=== PATIENT | female | born 1965 | race Caucasian/White ===

== ENCOUNTER 2016-10-05 20:34 | Inpatient (IN) | payer OTHER ==
--- NOTE | ~2016-10-05 | DS ---
Discharge Summary [facility] [address] [place]. [address] NAME: SANDI SPARKS : 67 STATUS : DIS IN PAT#: [id number] AGE: 51 ADM/REG DATE : 10/05/16 MR#: [id number] REPORT SERV DATE: 10/24/16 DICTATED BY: LUBNA DOUGLAS DATE: 10/23/16 REPORT STATUS : Draft TRANSCRIBED BY: ZULEMA DATE: 10/23/16 Data Collection from hospitalization DISCHARGE DIAGNOSES: 1. Coronary artery disease. 2. Hypertension. 3. Tobacco abuse. 4. Ozl-UW-potqivnpl myocardial infarction. CONSULTATION: Jamarcus Altamirano NP PROCEDURES PERFORMED: 1. Cardiac catheterization, 10/06/2016. 2. Coronary artery bypass grafting x3 with JONES to the LAD, reverse saphenous vein graft placed to the first diagonal, right internal mammary artery placed to the distal right coronary artery. 3. Endoscopic vein harvest of the left lower leg saphenous vein transesophageal echocardiography, 10/09/2016. 4. Carotid blood flow study, 10/09/2016. MEDICATIONS: Aspirin 162 mg daily, Lipitor 40 mg at bedtime, Plavix 75 mg daily, Toprol-XL 25 mg at bedtime, Centrum tablets one tablet daily, Percocet 5/325 one to two tablets every four hours as needed, Klor-Con 10 mEq daily. She was instructed not to continue labetalol and Benicar. CONDITION AT DISCHARGE: Stable. DISPOSITION: The patient was discharged home on a regular diet with activities as instructed. She would follow up with , 11/10/2016. She would follow up with Jez Smith, 11/30/2016. HOSPITAL COURSE: This is a 51-year-old female, who about a week prior to this admission, complained of abdominal discomfort, nausea, and vomiting. She thought that she has a flu or some type of viral illness because it resolved after she vomited and ambulance was activated, and she was basically in it within a couple of minutes. Her EKG showed worrisome P wave abnormalities in the anteroseptal region with possible anteroseptal infarct of undetermined age and anteroseptal ST-T changes, likely due to ischemia. Several EKGs were performed and they remained unchanged on arrival to the emergency department and was recognized as having a rok-RX-jyxchncqq myocardial infarction and was started on appropriate adjuvant therapy. Several EKGs were performed and were unchanged. When I was called by the emergency room, I was assured that she was completely asymptomatic and her troponin measurement was elevated at just over 5. She was started on IV heparin, topical nitrates, and loaded with beta blockers and started on statin and aspirin. She was admitted to the hospital at this time for further evaluation and treatment. Upon admission, it was felt that she would need to undergo a cardiac catheterization. She was taken to the cardiac cathode ray tube salvage processor, where she underwent the above-mentioned procedure. She tolerated this well and there were no complications. The following day, she was seen by [address] [place]. [address] NAME: SANDI SPARKS : 67 STATUS : DIS IN PAT#: [id number] AGE: 51 ADM/REG DATE : 10/05/16 MR#: [id number] REPORT SERV DATE: 10/24/16 DICTATED BY: LUBNA DOUGLAS DATE: 10/23/16 REPORT STATUS : Draft TRANSCRIBED BY: ZULEMA DATE: 10/23/16 Jamarcus Altamirano regarding multivessel coronary artery disease. The patient was found to have 90% ostial stenosis to the LAD and greater than 70% stenosis to the ostial RCA. Ejection fraction was calculated around 55% with a question of some mitral regurgitation, which was thought to likely be secondary to the catheter. An echocardiogram was pending. She was currently recovering after cardiac catheterization with no complaints of chest pain or shortness of breath. She was emotionally distraught due to the recent news regarding her medical health. It was felt that the patient would need to undergo coronary artery bypass grafting. Echocardiogram was performed. On 10/07/2016, she did have some palpitations. Metoprolol was increased. Echocardiogram had shown ejection fraction of 50%. On 10/09/2016, the patient was taken to the operating room by Dr. Conti, where she underwent the above-mentioned procedure. She tolerated this well and there were no complications. On postop day #1, she did have some nausea. She was in a normal sinus rhythm. She was up sitting in a chair. Chest tubes were going to be removed. Her incisions looked okay. She had no edema. She had done well overnight on the . She continued to do well postoperatively. She had trace pedal edema. O2 saturation was 97% on 2 L. she continued to do well. Discharge planning was performed. She was ambulatory. On 10/13/2016, discharge instructions were given. Due to her improved and stable condition, she was discharged home with the above-stated instructions. Information collected by: Brittany Jones I submit the above information as my discharge summary. PAT/ZULEMA Lubna Douglas D.O. / [id number] CC: Cindy Blanco NP
--- NOTE | ~2016-10-05 | ECH ---
Echocardiogram [facility] [address] [place]. [address] NAME: SANDI SPARKS : 67 STATUS : ADM IN PAT#: [id number] AGE: 51 ADM/REG DATE : 10/05/16 MR#: [id number] REPORT SERV DATE: 10/09/16 DICTATED BY: AZAR MENDOSA JR. DATE: 10/08/16 REPORT STATUS : Draft TRANSCRIBED BY: MODNeida DATE: 10/08/16 DATE OF ACQUISITION: 10/06/2016. Room #5109. INDICATIONS: Evaluation of mitral insufficiency post cardiac catheterization. Pre CAB. 2-D INTERPRETATION: M-mode and 2-dimensional echocardiography were performed. The left atrium was mildly dilated at 4.2 cm compared to an aortic root diameter of 3 cm. The left ventricle is normal in size measuring 5 cm in end-diastole and 3.7 cm in end-systole. Overall, there appeared to be borderline normal left ventricular systolic function with ejection fraction estimated at 50% with mild to moderate anterolateral and apical hypokinesis. The aortic valve was trileaflet, mildly sclerotic. The mitral valve appeared to be mildly sclerotic and thickened. The remaining cardiac valves appeared to be structurally normal. No obvious pericardial or pleural effusion could be seen. No intracardiac mass could be identified. The right ventricle did not appear to be dilated. DOPPLER/COLOR FLOW: Conventional and Doppler color flow imaging were performed. Mitral inflow patterns were suggestive of advanced diastolic dysfunction and pseudonormalization. There was mild mitral insufficiency. There was trace tricuspid insufficiency, however, a peak right ventricular systolic pressure did not suggest pulmonary hypertension. Peak gradient across the aortic valve measured 8 mmHg. CONCLUSION: BORDERLINE NORMAL LEFT VENTRICULAR SYSTOLIC FUNCTION WITH DIASTOLIC DYSFUNCTION. ANTERIOR LATERAL WALL MOTION ABNORMALITIES DESCRIBED ABOVE. MITRAL VALVE SCLEROSIS WITH MILD MITRAL INSUFFICIENCY. NO OBVIOUS EVIDENCE OF PULMONARY HYPERTENSION. /ZULEMA Azar Mendosa Jr., M.D. / [id number] CC: Lubna Douglas D.O.
--- NOTE | ~2016-10-05 | OP ---
Record Of Operation [facility] [address] [place]. [address] NAME: SANDI SPARKS : 67 STATUS : ADM IN PAT#: [id number] AGE: 51 ADM/REG DATE : 10/05/16 MR#: [id number] REPORT SERV DATE: 10/09/16 DICTATED BY: LUBNA DOUGLAS DATE: 10/06/16 REPORT STATUS : Draft TRANSCRIBED BY: ZULEMA DATE: 10/06/16 DATE OF PROCEDURE: 10/06/2016 CARDIAC CATHETERIZATION REPORT INDICATION: Non-STEMI. CONSENT: From the patient. LOCATION: Cardiac director labor standards 2. SPLUNK ARCHITECT: Lubna Douglas D.O. LABOR CONTRACT ANALYST: Lashon Whyte. MONITOR: Nannette Jin. SCRUB: Colby Rhodes. FLURO: Colby Lucas. INDICATION: Non-STEMI with angina class IV. ACCESS: Right femoral artery. EQUIPMENT USED: 6-Brazilian 3DRC, 6-Brazilian JL4, 6-Brazilian pigtail, and 6-Brazilian sheath. Micropuncture kit also utilized for arterial access. The patient's body surface area is 1.6 meter squared, hemoglobin 12.7. BRIEF SUMMARY: This 51-year-old lady, former smoker, history of hypertension, developed acute severe chest tightness at work. 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 Initial troponin level was 5, and she actually was very stable overnight without recurrent symptoms. She is brought into the cardiac catheterization lab after arterial access was obtained, we sent an additional troponin measurement, results are pending. She tolerated the procedure well and given the findings, Dr. Conti was consulted for CABG. 1. Hemodynamics: The patient had borderline hypotension at the start of the case with systolic blood pressure just below 100. The LVEDP was approximately 14. 2. Selective coronary arteriography:. a. The patient has a right dominant system. She has calcified plaque seen involving the left coronary artery system. The left main artery appeared fairly normal, however, the ostium of the LAD had a very tight eccentric lesion of approximately 90% severity. The remainder of the LAD appeared quite good. Calcific plaque was noted at the ostium creating the eccentric stenosis seen best in the Record Of Operation [facility] [address] [place]. [address] NAME: SANDI SPARKS : 67 STATUS : ADM IN PAT#: [id number] AGE: 51 ADM/REG DATE : 10/05/16 MR#: [id number] REPORT SERV DATE: 10/09/16 DICTATED BY: LUBNA DOUGLAS DATE: 10/06/16 REPORT STATUS : Draft TRANSCRIBED BY: ZULEMA DATE: 10/06/16 "spider views.". b. The circumflex artery was at minor irregularities. The right coronary artery was large dominant vessel with an ostial of at least 70% lesion. Engagement of the ostium with the 6-Brazilian catheter resulted in prompt systemic pressure dampening, which was resolved after the catheter was withdrawn. c. No collaterals were visualized to either the left coronary system or right coronary system. 3. Left ventriculography. Ventriculogram was obtained in the 30-degree, VYAS view. This demonstrates a dilated left ventricular cavity and an ejection fraction of approximately 50 to perhaps 55% with anterolateral hypokinesis and trivial to 1 plus MR. The MR did look worse following a PVC. Echocardiogram has been ordered and is pending. The aortic valve appeared trileaflet and there was no gradient observed on pigtail catheter pullback from this left ventricular cavity to the ascending aorta. CONCLUSION: 1. Severe two-vessel coronary artery disease involving the ostial LAD and ostial RCA. Left ventricular ejection fraction is mildly reduced/low normal. 2. Mild mitral regurgitation. MR appears worse, but after several beats likely due to catheter-induced MR. 3. Relative hypotension. 4. Mildly elevated LVEDP. PLAN: Check an echocardiogram. Continue aspirin, statin, beta chaz, nitrate as tolerated. Consult Dr. Conti for CABG. Troponin was sent at the beginning of the case and results are pending. SANJAY/ZULEMA Lubna Douglas D.O. / [id number] CC: Lubna Douglas D.O.
--- NOTE | ~2016-10-05 | HP ---
History And Physical [facility] [id number] [place]. [address] NAME: SANDI SPARKS : 67 STATUS : ADM IN [facility]#: [id number] AGE: 51 ADM/REG DATE : 10/05/16 MR#: [id number] REPORT SERV DATE: 10/06/16 DICTATED BY: LUBNA DOUGLAS DATE: 10/06/16 REPORT STATUS : Draft TRANSCRIBED BY: ZULEMA DATE: 10/06/16 DATE OF ADMISSION: 10/05/2016 REASON FOR ADMISSION: Non-STEMI. 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 She is new at [employer], previously working in [place]. 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 There EKG showed worrisome T-wave abnormalities in the anteroseptal region with possible anteroseptal infarct, age undetermined and anteroseptal ST-T changes likely due to ischemia. Several EKGs were preformed and they remained unchanged. On arrival to the emergency department, she was seen and evaluated, recognizes having a non-STEMI and started on appropriate adjuvant therapy. When I was called by the emergency room, I was assured that she was completely asymptomatic and her troponin measurement was elevated at just over 5. She was started on IV heparin, topical nitrates, loaded with beta-blockers started on statin, aspirin, and admitted. She is to have cardiac catheterization based on the above. She has not had any arrhythmias overnight or recurrent symptoms. She has deep and symmetric inverted T-waves anteroseptally extending anterolaterally and possibly had prior anteroseptal infarct. Home medicines include Benicar HCT 20/12.5 daily, labetalol 200 b.i.d., multivitamin. SOCIAL HISTORY: She is . She has a boyfriend. She has a 32-year-old son who works and lives in [place]. She denies illicit drug use or alcohol and is complain with medications. ALLERGIES: NONE KNOWN. RECENT SURGERIES: None. Specifically, denies illicit drug use. Labs on arrival noted with a hemoglobin of 13.1, normal white count, and platelet count 209,000. Coags were normal. She was treated by Dr. Jhonatan De La Torre in the ER. Potassium was 3.6, magnesium 1.8, troponin I 5.95. Chest x-ray unremarkable. Serial EKGs were performed. Additional troponin measurements were made, and the patient is in no distress. FAMILY HISTORY: Mother of CHF at 50, father had hypertension. Habit: She quit smoking four years ago, smoked about 25 pack years. PHYSICAL EXAMINATION: VITAL SIGNS: Stable. She is 5 feet, weight 137. GENERAL: Pleasant, no distress. HEENT: Unremarkable. NECK: Veins are flat. No carotid bruits. History And Physical [address] [address] NAME: SANDI SPARKS : 67 STATUS : ADM IN [facility]#: [id number] AGE: 51 ADM/REG DATE : 10/05/16 MR#: [id number] REPORT SERV DATE: 10/06/16 DICTATED BY: LUBNA DOUGLAS. DATE: 10/06/16 REPORT STATUS : Draft TRANSCRIBED BY: ZULEMA DATE: 10/06/16 LUNGS: Clear. HEART: Heart sounds are regular rate and rhythm. S1, S2. No murmur, rub, gallop, or click. ABDOMEN: Soft. EXTREMITIES: No edema. IMPRESSION: Gjj-ZP-qlkejuttz myocardial infarction with worrisome EKG abnormalities for anterior ischemia. She could have multivessel disease with an occluded LAD and collaterals. Other considerations would be takotsubo cardiomyopathy or coronary artery vasospasm. PLAN: Cardiac catheterization is recommended. The patient aggress to proceed. I discussed the risks, benefits, and alternatives and she seems to understand completely and agrees to proceed. SANJAY/ZULEMA Lubna Douglas D.O. / [id number] CC: Lubna Douglas D.O.
--- NOTE | ~2016-10-05 | OP ---
Record Of Operation [facility] [address] [place]. [address] NAME: SANDI SPARKS : 67 STATUS : ADM IN PAT#: [id number] AGE: 51 ADM/REG DATE : 10/05/16 MR#: [id number] REPORT SERV DATE: 10/09/16 DICTATED BY: LINDA CONTI DATE: 10/09/16 REPORT STATUS : Draft TRANSCRIBED BY: MODL DATE: 10/09/16 DATE OF PROCEDURE: 10/09/2016 PREOPERATIVE DIAGNOSES: 1. Coronary artery disease with non-ST elevation myocardial infarction. 2. Hypertension. 3. Previous tobacco abuse. 4. Obesity. POSTOPERATIVE DIAGNOSES: 1. Coronary artery disease with non-ST elevation myocardial infarction. 2. Hypertension. 3. Previous tobacco abuse. 4. Obesity. PROCEDURE PERFORMED: 1. Urgent coronary artery bypass grafting x3, left internal mammary artery placed to left anterior descending, reverse saphenous vein graft placed to the first diagonal, right internal mammary artery placed to the distal right coronary artery. 2. Endoscopic vein harvest of the left lower leg saphenous vein. 3. Transesophageal echocardiography. SURGEON: Linda Conti M.D. ASSISTANTS: Jayleen Motta, and Abdirahman Bah. ANESTHESIA: General with Dr. Mayen. TECHNICAL TRAINING INSTRUCTOR: Lubna Douglas D.O. INDICATIONS: This is a 51-year-old female, who has a remote history of smoking and quit about five years ago. She has a strong family history for coronary disease. She is hypertensive. She presented to the emergency room with unrelenting chest discomfort and in the emergency room, had nonspecific ST changes and a troponin that was elevated. She was admitted to the hospital and medically stabilized and underwent a cardiac catheterization, which demonstrated significant two-vessel coronary artery disease with ostial LAD and right coronary artery lesions. It was felt that the patient would not be a good candidate for angioplasty because of the proximal nature of the disease. Her ventricular function was good with an ejection fraction greater than 50%. We were asked to see the patient for possible revascularization. Echocardiography did not demonstrate any critical valvular dysfunction. We discussed possible coronary artery bypass grafting with the patient and her boyfriend and they wished to proceed. STS predicted mortality of less than 2% and morbidity and mortality less than 10% were shared with the family and the patient. FINDINGS AT OPERATION: 1. Cross-clamp 56 minutes, total pump time 71 minute. Record Of Operation [facility] [address] [place]. [address] NAME: SANDI SPARKS : 67 STATUS : ADM IN PAT#: [id number] AGE: 51 ADM/REG DATE : 10/05/16 MR#: [id number] REPORT SERV DATE: 10/09/16 DICTATED BY: LINDA CONTI DATE: 10/09/16 REPORT STATUS : Draft TRANSCRIBED BY: ZULEMA DATE: 10/09/16 2. The LAD was 1.75 mm mildly diseased vessel. A 2.5 mm JONES was anastomosed to it with good runoff. 3. The first diagonal was 1.5 mm mildly diseased. A 3 mm RSVG was anastomosed to it with good runoff. 4. The distal right coronary artery was 2 mm mildly diseased. A 2 mm right internal mammary artery was anastomosed to it with good runoff. This was an in situ graft. 5. The vein quality was good and all grafts had good Doppler signal at the end of the case. 6. CARISA at the end of the operation demonstrated good ventricular function. No surgically significant valvular pathology. PATHOLOGIC SPECIMENS: None. DESCRIPTION OF PROCEDURE: The patient was brought to the operating suite. General anesthesia was induced and the airway was secured with an endotracheal tube. Lines were secured by Anesthesia and Tanner catheter was placed. The patient's chest, abdomen, groin, and legs prepped with Hibiclens and ChloraPrep and draped with Ioban and sterile sheets. CARISA probe was placed by Dr. Mayen and examination was carried out in my attendance as discussed above. The saphenous vein was harvested from the left lower leg using endoscopic technique. Briefly, the vein was cut directly down upon through a medially based 2 cm incision near the right knee. Thus, the vessel was dissected from the surrounding subcutaneous tissue and fat using the endoscopic vein harvest system. And side branches were ligated and divided with cautery. Once adequate length of vein had been dissected, a counter incision was made in the lower leg just above the medial malleolus. The vein was ligated, divided, and brought through the knee incision. The vein quality was good. It was mildly small, but felt to be good match for the distal targets. The leg wounds were made hemostatic, and closed in layers with absorbable suture, and the skin was closed in subcuticular fashion. Then, a midline sternal incision was made and the sternum was opened with a saw. The left hemithorax was elevated and the endothoracic fascia was incised. The side branches of the KAYDEN were clipped and divided. Once the KAYDEN was completely dissected from the left side, the Jg retractor was reversed and right hemithorax was elevated. The right internal mammary artery was dissected from the chest wall in an identical fashion. There were moderate-sized bilateral pleural effusions that were evacuated and these were serous. Once the right internal mammary artery was completely dissected, each side branches were ligated, clipped, and divided with cautery. Once adequate length of the right mammary artery had been dissected completely, the patient was anticoagulated with heparin. The chest tubes were placed bilaterally in the pleural spaces. Both mammary vessels were then clipped distally and divided. There was good flow through both of the vessels and their pedicles were infiltrated with papaverine. Next, the Travis retractor was placed in the pericardium over from the innominate vein to the diaphragm where it was T'd and tacked to the side of the chest wall. Cannulation pursestring sutures were placed and cannulation was carried out in a routine manner. A retrograde cardioplegia cannula was placed in the coronary sinus. Record Of Operation [facility] [address] [place]. [address] NAME: SANDI SPARKS : 67 STATUS : ADM IN [facility]#: [id number] AGE: 51 ADM/REG DATE : 10/05/16 MR#: [id number] REPORT SERV DATE: 10/09/16 DICTATED BY: LINDA CONTI DATE: 10/09/16 REPORT STATUS : Draft TRANSCRIBED BY: MODL DATE: 10/09/16 When all was in readiness, the patient was placed on cardiopulmonary bypass. The distal targets were marked out on the heart as described in the findings. Then, a heart support was placed. The aorta was crossclamped and an initial dose cold blood cardioplegia solution was given in a combination of antegrade and retrograde fashion, then in a retrograde manner following proximal anastomoses. Following the first dose of cardioplegia, the heart was positioned for the first diagonal graft. Arteriotomy was made. The vein graft was then anastomosed to it with 7-0 Prolene. The vein graft was measured back to the left side of the ascending aorta where it was later anastomosed to a 4.5 mm punch aortotomy with 6-0 Prolene. We then positioned the heart for the distal RCA graft. Arteriotomy was made in the distal RCA just proximal to the bifurcation with the PDA. The right internal mammary artery was brought into the middle mediastinal space through a notch in the pericardium above the proximal SVC. Care was taken to avoid injury to the phrenic nerve. The right mammary artery was then brought down to the level of the distal RCA. Arteriotomy was made and the KAYDEN was opened and anastomosed to this vessel with a running suture of 8-0 Prolene. Following completion of anastomosis, Doppler signal demonstrated good flow and the pedicle was then tacked to the pericardium. Another dose of cardioplegia was given and we positioned the heart for the LAD graft. Warming was begun. Arteriotomy was made to mid LAD. The KAYDEN was brought out of the left chest through a notch in the pericardium over the pulmonary artery. The KAYDEN was opened and anastomosed to the LAD with running suture of 8-0 Prolene. The endothoracic fascia was tacked to epicardium. The patient was placed in Trendelenburg and a final dose of warm blood cardioplegia was given in a retrograde fashion. Ventricular and atrial pacing wires were placed. Following the last dose cardioplegia and deairing of the aorta, the aortic cross clamp was removed. The distal and proximal anastomoses were inspected and made hemostatic. Doppler demonstrated good flow through the grafts. The heart resumed a sinus rhythm that was slow and was paced atrially at a rate of 80. Ventilations were begun and when the heart demonstrated good contractility, it was allowed to fill and eject. When deairing was completed, the patient was taken out of Trendelenburg and the ascending aortic vent was removed and these pursestring sutures tied and reinforced with 4-0 Prolene pursestring. The patient was weaned from cardiopulmonary bypass with minimal inotropic support. The venous cannula was removed and these pursestring sutures were tied. CARISA examination demonstrated good ventricular function with no significant valvular pathology. Protamine was administered by Anesthesia. Following a period of hemodynamic stability, the aortic cannula was removed and these pursestring sutures were tied and reinforced. The patient continued to do well and chest was irrigated copiously with saline. Meticulous hemostasis was obtained. Hemasorb was placed along the cut edge of the sternum. Once hemostasis was assured, the pericardium was draped over the anterior surface of the heart and tacked into position. Doppler demonstrated good flow through the grafts following protamine administration. Then, chest tubes were placed and the sternum was reapproximated Record Of Operation [facility] [id number] [place]. [address] NAME: SANDI SPARKS : 67 STATUS : ADM IN [facility]#: [id number] AGE: 51 ADM/REG DATE : 10/05/16 MR#: [id number] REPORT SERV DATE: 10/09/16 DICTATED BY: LINDA CONTI DATE: 10/09/16 REPORT STATUS : Draft TRANSCRIBED BY: ZULEMA DATE: 10/09/16 with 8 sternal wires. The clavipectoral fascia and linea alba was closed with 0 PDS. Subcutaneous tissue was closed and the skin was closed in subcuticular fashion. The patient tolerated the procedure well. There were no complications. Sponge and needle counts were correct. DISPOSITION: The patient was left intubated, sedated, and transported to the Intensive Care in stable condition. AMELIA/ZULEMA Linda Conti M.D. / [id number] CC: Cindy Blanco Jr., M.D.
--- NOTE | ~2016-10-05 | CN ---
Consultation Report [facility] [address] [place]. [address] NAME: SANDI SPARKS : 67 STATUS : ADM IN PAT#: [id number] AGE: 51 ADM/REG DATE : 10/05/16 MR#: [id number] REPORT SERV DATE: 10/06/16 DICTATED BY: CAITLYN FRANKS DATE: 10/06/16 REPORT STATUS : Draft TRANSCRIBED BY: MODL DATE: 10/06/16 CONSULT REPORT DATE OF CONSULTATION: 10/06/2016 REASON FOR CONSULTATION: Multivessel coronary artery disease. HISTORY OF PRESENT ILLNESS: This is a pleasant 51-year-old female with no significant past medical history other than high blood pressure that presented to the emergency room on 10/05/2016 with complaints of severe substernal chest pain. In the emergency room yesterday evening, she had an elevated troponin consistent with a non-ST- elevation LA. She was taken for arteriogram this morning and found to have multivessel coronary artery disease including a 90% ostial stenosis to her LAD and greater than 70% stenosis to her ostial RCA. Ejection fraction was calculated around 55% with a question of some mitral regurgitation, which was thought to likely be secondary to the catheter. An echocardiogram is currently pending. Currently, the patient is recovering after cardiac catheterization with no complaints of chest pain or shortness of breath. She is emotionally distraught at this point in time due to the recent news regarding her medical health. CT surgery was consulted for evaluation of CAB. PAST MEDICAL HISTORY: Significant only for hypertension. PAST SURGICAL HISTORY: No major surgeries in the past. FAMILY HISTORY: Mother with a history of CHF and mother with a history of high blood pressure. SOCIAL HISTORY: She is employed at [employer]. She smoked for 25 years around a pack per day, but quit four years ago. She occasionally uses alcohol, but denies any history of illicit drugs. ALLERGIES: NO KNOWN DRUG ALLERGIES. MEDICATIONS: Labetalol 200 mg p.o. b.i.d., Benicar 20/12.5 mg p.o. daily, Centrum multivitamin daily. REVIEW OF SYSTEMS: A 10-point review of systems was obtained and is negative other than HPI. PHYSICAL EXAMINATION: VITAL SIGNS: From today vital signs, temperature 97.8, heart rate 62, blood pressure 102/55, respiratory rate 14, O2 saturation 96% on room air. GENERAL: Pleasant female, in no acute distress. PSYCH: Normal mood, talkative, pleasant, but tearful. Consultation Report [facility] [address] [place]. [address] NAME: SANDI SPARKS : 67 STATUS : ADM IN PAT#: [id number] AGE: 51 ADM/REG DATE : 10/05/16 MR#: [id number] REPORT SERV DATE: 10/06/16 DICTATED BY: CAITLYN FRANKS DATE: 10/06/16 REPORT STATUS : Draft TRANSCRIBED BY: ZULEMA DATE: 10/06/16 NEURO: Alert and oriented x3. Pupils are equal, round, and reactive to light and accommodation. HEENT: Head is normocephalic and atraumatic. Sclerae clear. Nose midline with no abnormality. Ears with no abnormalities. NECK: Supple with no obvious thyromegaly or lymphadenopathy. Carotids upon auscultation with no obvious bruits. LUNGS: Clear to auscultation bilaterally with normal effort. CARDIAC: S1, S2 with no murmurs, rubs, or gallops. ABDOMEN: Soft, nontender with active bowel sounds. EXTREMITIES: Free of cyanosis, clubbing, or edema. LABORATORY DATA: White blood cell count 8.1, hemoglobin 12.7, hematocrit 34, platelets 208. Sodium 129, potassium 3.6, chloride 94, bicarbonate 27, BUN 13, creatinine 0.87, glucose 125. Troponin 5.23. IMAGING: Chest PA and lateral today showed no acute cardiopulmonary abnormality. ASSESSMENT AND PLAN: This is a pleasant 51-year-old female, with no significant past medical history other than high blood pressure and tobacco abuse. She was admitted with chest pain, positive troponin consistent with [id number] myocardial infarction, taken for arteriogram this morning and found to have severe two-vessel coronary artery disease and questionable mitral regurgitation thought to be catheter induced, but echocardiogram is pending. She needs a two-vessel coronary artery bypass. I discussed the risk and benefits of surgery with her as well as STS risk stratification, STS risk scores for her, and this particular surgery include an overall mortality of 0.6% and morbidity mortality of 8.1%. I discussed these findings with her in regard to surgery and postop recovery and she is willing to proceed. Dr. Conti is currently at the bedside. Discussing her options with her. We will wait for echocardiogram to plan intervention for the mitral valve if needed. We will likely get carotid ultrasound and plan surgery for early next week. We appreciate the consultation, look forward to helping care for Ms Sandi Sparks. JOY/ZULEMA Caitlyn Franks NP / [id number] CC: Lubna Douglas D.O.
[2016-10-05 19:36] LABS: BASOPHILS 0.3 %; BASOPHILS ABSOLUTE 0.02 10/3/uL (0.0-0.16); EOSINOPHILS 0.6 %; EOSINOPHILS ABSOLUTE 0.05 10/3/uL (0.0-0.53); ER CBC TAT 0 Hrs 09 Mins; HEMOGLOBIN 13.1 g/dL (12.0-16.0); IMMATURE GRANULOCYTES 0.1 %; IMMATURE GRANULOCYTES ABSOLUTE 0.01 10/3/uL (0.0-0.11); LYMPHOCYTES 19.5 %; LYMPHOCYTES ABSOLUTE 1.53 10/3/uL (0.67-4.30); MEAN CORPUS HGB CONC 37.4 g/dL (32.0-36.0); MEAN CORPUSCULAR HEMOGLOB 36.6 pg (26.0-34.0); MEAN CORPUSCULAR VOLUME 97.8 fL (80-100); MEAN PLATELET VOLUME 10.5 fL (9.2-13.0); MONOCYTES 9.3 %; MONOCYTES ABSOLUTE 0.73 10/3/uL (0.21-1.20); NEUTROPHILS 70.2 %; NEUTROPHILS ABSOLUTE 5.49 10/3/uL (2.02-8.40); PLATELET COUNT 209 10/3/uL (150-400); RBC DISTRIBUTION WIDTH 12.5 % (12.0-16.0); RED CELL COUNT 3.58 10/6/uL (4.0-5.6); WHITE BLOOD CELLS 7.8 10/3/uL (4.5-10.5)
[2016-10-05 19:39] LABS: MANUAL DIFF NO %
[2016-10-05 19:50] LABS: BUN (BLOOD UREA NITROGEN) 9 MG/DL (6-23); CALCIUM, SERUM 7.9 MG/DL (8.5-10.4); CHLORIDE, SERUM 92 MMOL/L (96-112); CO2 (CARBON DIOXIDE) 27 MMOL/L (24-34); CREATININE 0.68 MG/DL (0.55-1.02); GFR AFRICAN AMERICAN 118 ML/MIN (>=60); GFR NON AFRICAN AMERICAN 102 ML/MIN (>=60); GLUCOSE, SERUM 106 MG/DL (60-99); POTASSIUM, SERUM 3.6 MMOL/L (3.5-5.3); SODIUM, SERUM 129 MMOL/L (135-148)
[2016-10-05 19:52] LABS: CHEST PAIN PROFILE TAT 0 Hrs 25 Mins; TROPONIN I 5.95 NG/ML (<0.05)
[2016-10-05 19:52] LABS: INTERNATIONAL NORMAL RATI 1.1 UNITS (-); PARTIAL THROMBO TIME 26.3 SEC (22.5-37.2); PROTIME (NOT ORD) 13.8 SEC (12.0-14.5)
[2016-10-05] MEDS ORDERED: TRAN200 PO (20:44)
[2016-10-05] MEDS ORDERED: CENTRUM PO (20:45)
[2016-10-06 02:17] LABS: BASOPHILS 0.1 %; BASOPHILS ABSOLUTE 0.01 10/3/uL (0.0-0.16); EOSINOPHILS 0.9 %; EOSINOPHILS ABSOLUTE 0.07 10/3/uL (0.0-0.53); HEMATOCRIT 34.1 % (36.0-48.0); HEMOGLOBIN 12.7 g/dL (12.0-16.0); IMMATURE GRANULOCYTES 0.2 %; IMMATURE GRANULOCYTES ABSOLUTE 0.02 10/3/uL (0.0-0.11); LYMPHOCYTES ABSOLUTE 2.59 10/3/uL (0.67-4.30); MEAN CORPUS HGB CONC 37.2 g/dL (32.0-36.0); MEAN CORPUSCULAR HEMOGLOB 36.5 pg (26.0-34.0); MEAN PLATELET VOLUME 10.6 fL (9.2-13.0); MONOCYTES 8.5 %; MONOCYTES ABSOLUTE 0.69 10/3/uL (0.21-1.20); NEUTROPHILS 58.3 %; NEUTROPHILS ABSOLUTE 4.72 10/3/uL (2.02-8.40); PLATELET COUNT 208 10/3/uL (150-400); RBC DISTRIBUTION WIDTH 12.7 % (12.0-16.0); RED CELL COUNT 3.48 10/6/uL (4.0-5.6); WHITE BLOOD CELLS 8.1 10/3/uL (4.5-10.5)
[2016-10-06 02:20] LABS: MANUAL DIFF NO %
[2016-10-06 02:33] LABS: CALCIUM, SERUM 8.3 MG/DL (8.5-10.4); CHLORIDE, SERUM 94 MMOL/L (96-112); CHOLESTEROL 155 MG/DL (< 200); CO2 (CARBON DIOXIDE) 27 MMOL/L (24-34); CREATININE 0.87 MG/DL (0.55-1.02); GFR AFRICAN AMERICAN 90 ML/MIN (>=60); GFR NON AFRICAN AMERICAN 78 ML/MIN (>=60); GLUCOSE, SERUM 125 MG/DL (60-99); HDL CHOLESTEROL 78 MG/DL (> 49); LDL CHOLESTEROL 62 MG/DL (< 130); NON-HDL CHOLESTEROL 77 MG/DL (< 160); POTASSIUM, SERUM 3.6 MMOL/L (3.5-5.3); SGPT(ALT) 18 U/L (5-65); SODIUM, SERUM 129 MMOL/L (135-148); TRIGLYCERIDE 76 MG/DL (< 150)
[2016-10-06 02:34] LABS: BUN (BLOOD UREA NITROGEN) 13 MG/DL (6-23); TROPONIN I 6.96 NG/ML (<0.05)
[2016-10-06 02:41] LABS: RBC MORPHOLOGY NORM (NORMAL)
[2016-10-07 01:18] LABS: BASOPHILS 0.3 %; BASOPHILS ABSOLUTE 0.02 10/3/uL (0.0-0.16); EOSINOPHILS 1.2 %; EOSINOPHILS ABSOLUTE 0.07 10/3/uL (0.0-0.53); HEMATOCRIT 35.1 % (36.0-48.0); HEMOGLOBIN 12.5 g/dL (12.0-16.0); IMMATURE GRANULOCYTES 0.2 %; IMMATURE GRANULOCYTES ABSOLUTE 0.01 10/3/uL (0.0-0.11); LYMPHOCYTES 40.4 %; LYMPHOCYTES ABSOLUTE 2.43 10/3/uL (0.67-4.30); MEAN CORPUS HGB CONC 35.6 g/dL (32.0-36.0); MEAN CORPUSCULAR HEMOGLOB 36.3 pg (26.0-34.0); MEAN PLATELET VOLUME 10.6 fL (9.2-13.0); MONOCYTES 6.8 %; MONOCYTES ABSOLUTE 0.41 10/3/uL (0.21-1.20); NEUTROPHILS 51.1 %; NEUTROPHILS ABSOLUTE 3.07 10/3/uL (2.02-8.40); PLATELET COUNT 219 10/3/uL (150-400); RBC DISTRIBUTION WIDTH 12.9 % (12.0-16.0); RED CELL COUNT 3.44 10/6/uL (4.0-5.6)
[2016-10-07 01:19] LABS: MANUAL DIFF NO %
[2016-10-07 01:36] LABS: CALCIUM, SERUM 8.1 MG/DL (8.5-10.4); CHLORIDE, SERUM 101 MMOL/L (96-112); CO2 (CARBON DIOXIDE) 29 MMOL/L (24-34); CREATININE 0.74 MG/DL (0.55-1.02); GFR AFRICAN AMERICAN 109 ML/MIN (>=60); GFR NON AFRICAN AMERICAN 94 ML/MIN (>=60); POTASSIUM, SERUM 4.3 MMOL/L (3.5-5.3)
[2016-10-07 01:38] LABS: BUN (BLOOD UREA NITROGEN) 9 MG/DL (6-23); GLUCOSE, SERUM 89 MG/DL (60-99); SODIUM, SERUM 138 MMOL/L (135-148)
[2016-10-07 11:27] LABS: ASCORBIC ACID (UR NOT ORDER) 40 (NEG); BILIRUBIN, URINE NEGATIVE (NEG); KETONE, URINE NEGATIVE (NEG); LEUKOCYTE ESTERASE(NOT OR NEG (NEG); WBC (NOT ORDERED) (RFLEX) < 1 (0-5)
[2016-10-08 01:59] LABS: BASOPHILS 0.3 %; BASOPHILS ABSOLUTE 0.02 10/3/uL (0.0-0.16); EOSINOPHILS 1.3 %; EOSINOPHILS ABSOLUTE 0.08 10/3/uL (0.0-0.53); HEMATOCRIT 31.5 % (36.0-48.0); HEMOGLOBIN 11.3 g/dL (12.0-16.0); IMMATURE GRANULOCYTES 0.2 %; IMMATURE GRANULOCYTES ABSOLUTE 0.01 10/3/uL (0.0-0.11); LYMPHOCYTES 37.9 %; LYMPHOCYTES ABSOLUTE 2.42 10/3/uL (0.67-4.30); MANUAL DIFF NO %; MEAN CORPUS HGB CONC 35.9 g/dL (32.0-36.0); MEAN CORPUSCULAR HEMOGLOB 36.5 pg (26.0-34.0); MEAN CORPUSCULAR VOLUME 101.6 fL (80-100); MEAN PLATELET VOLUME 10.6 fL (9.2-13.0); MONOCYTES 6.7 %; MONOCYTES ABSOLUTE 0.43 10/3/uL (0.21-1.20); NEUTROPHILS 53.6 %; NEUTROPHILS ABSOLUTE 3.42 10/3/uL (2.02-8.40); PLATELET COUNT 201 10/3/uL (150-400); WHITE BLOOD CELLS 6.4 10/3/uL (4.5-10.5)
[2016-10-08 02:18] LABS: BUN (BLOOD UREA NITROGEN) 8 MG/DL (6-23); CALCIUM, SERUM 8.3 MG/DL (8.5-10.4); CHLORIDE, SERUM 104 MMOL/L (96-112); CO2 (CARBON DIOXIDE) 26 MMOL/L (24-34); CREATININE 0.69 MG/DL (0.55-1.02); GFR AFRICAN AMERICAN 118 ML/MIN (>=60); GFR NON AFRICAN AMERICAN 102 ML/MIN (>=60); GLUCOSE, SERUM 101 MG/DL (60-99); POTASSIUM, SERUM 4.3 MMOL/L (3.5-5.3); SODIUM, SERUM 138 MMOL/L (135-148)
[2016-10-09 05:26] LABS: BASOPHILS 0.1 %; BASOPHILS ABSOLUTE 0.01 10/3/uL (0.0-0.16); EOSINOPHILS 1.2 %; EOSINOPHILS ABSOLUTE 0.09 10/3/uL (0.0-0.53); HEMATOCRIT 31.9 % (36.0-48.0); HEMOGLOBIN 11.5 g/dL (12.0-16.0); IMMATURE GRANULOCYTES 0.1 %; IMMATURE GRANULOCYTES ABSOLUTE 0.01 10/3/uL (0.0-0.11); LYMPHOCYTES 20.5 %; MEAN CORPUS HGB CONC 36.1 g/dL (32.0-36.0); MEAN CORPUSCULAR HEMOGLOB 36.1 pg (26.0-34.0); MEAN PLATELET VOLUME 10.9 fL (9.2-13.0); MONOCYTES 8.1 %; MONOCYTES ABSOLUTE 0.59 10/3/uL (0.21-1.20); PLATELET COUNT 200 10/3/uL (150-400); RBC DISTRIBUTION WIDTH 12.9 % (12.0-16.0); RED CELL COUNT 3.19 10/6/uL (4.0-5.6); WHITE BLOOD CELLS 7.3 10/3/uL (4.5-10.5)
[2016-10-09 05:41] LABS: ALKALINE PHOSPHATASE 89 U/L (45-117); BUN (BLOOD UREA NITROGEN) 10 MG/DL (6-23); CALCIUM, SERUM 8.3 MG/DL (8.5-10.4); CHLORIDE, SERUM 104 MMOL/L (96-112); CO2 (CARBON DIOXIDE) 23 MMOL/L (24-34); CREATININE 0.64 MG/DL (0.55-1.02); GFR AFRICAN AMERICAN 121 ML/MIN (>=60); GFR NON AFRICAN AMERICAN 104 ML/MIN (>=60); GLOBULIN 2.9 G/DL (2.5-4.1); GLUCOSE, SERUM 95 MG/DL (60-99); POTASSIUM, SERUM 4.2 MMOL/L (3.5-5.3); SGOT(AST) 73 U/L (5-40); SGPT(ALT) 113 U/L (5-65); SODIUM, SERUM 137 MMOL/L (135-148); TOTAL BILIRUBIN 0.6 MG/DL (0-1.2); TOTAL PROTEIN 5.9 G/DL (6.0-8.5)
[2016-10-09 05:49] LABS: MANUAL DIFF NO %
[2016-10-09 13:01] LABS: BE (BASE EXCESS) -1.8 MEQ/L (0 +/- 2.5); CARBOXYHEMOGLOBIN 0.3 % (0-3); HCO3 (ACTUAL BICARBONATE) 23.5 MEQ/L (23-27); HEMOBLOGIN CONTENT 9.9 G/DL (12-16); INSTRUMENT SERIAL # 11843; METHEMOGLOBIN 0.7 % (0-3); MODE SIMV; OPERATOR ID 32214; PCO2 (CO2 TENSION) 42 MMHG (35-45); PO2 (O2 TENSION) 202 MMHG (79-93); SAMPLE Arterial; TIDAL VOLUME 500 ML; pH 7.36 (7.37-7.43)
[2016-10-09 13:11] LABS: PLATELET COUNT 141 10/3/uL (150-400)
[2016-10-09 13:12] LABS: HEMATOCRIT 25.1 % (36.0-48.0); HEMOGLOBIN 9.1 g/dL (12.0-16.0)
[2016-10-09 13:20] LABS: INTERNATIONAL NORMAL RATI 1.4 UNITS (-)
[2016-10-09 13:21] LABS: PARTIAL THROMBO TIME 29.6 SEC (22.5-37.2); PROTIME (NOT ORD) 17.1 SEC (12.0-14.5)
[2016-10-09 13:24] LABS: BUN (BLOOD UREA NITROGEN) 9 MG/DL (6-23); CALCIUM, SERUM 8.8 MG/DL (8.5-10.4); CHLORIDE, SERUM 109 MMOL/L (96-112); CO2 (CARBON DIOXIDE) 24 MMOL/L (24-34); CREATININE 0.81 MG/DL (0.55-1.02); GFR AFRICAN AMERICAN 98 ML/MIN (>=60); GFR NON AFRICAN AMERICAN 85 ML/MIN (>=60); GLUCOSE, SERUM 74 MG/DL (60-99); POTASSIUM, SERUM 4.1 MMOL/L (3.5-5.3); SODIUM, SERUM 141 MMOL/L (135-148)
[2016-10-09 17:49] LABS: BE (BASE EXCESS) -2.3 MEQ/L (0 +/- 2.5); CARBOXYHEMOGLOBIN 0.3 % (0-3); DEVICE NC; HCO3 (ACTUAL BICARBONATE) 22.8 MEQ/L (23-27); HEMOBLOGIN CONTENT 12.5 G/DL (12-16); INSTRUMENT SERIAL # 11843; METHEMOGLOBIN 0.5 % (0-3); O2 CONTENT 16.7 VOL% (18-24); PCO2 (CO2 TENSION) 40 MMHG (35-45); PO2 (O2 TENSION) 85 MMHG (79-93); SAMPLE Arterial; pH 7.37 (7.37-7.43)
[2016-10-09 18:38] LABS: HEMATOCRIT 32.2 % (36.0-48.0); HEMOGLOBIN 11.5 g/dL (12.0-16.0)
[2016-10-09 18:41] LABS: BUN (BLOOD UREA NITROGEN) 11 MG/DL (6-23); CALCIUM, SERUM 8.3 MG/DL (8.5-10.4); CHLORIDE, SERUM 113 MMOL/L (96-112); CO2 (CARBON DIOXIDE) 23 MMOL/L (24-34); CREATININE 0.71 MG/DL (0.55-1.02); GFR AFRICAN AMERICAN 115 ML/MIN (>=60); GFR NON AFRICAN AMERICAN 99 ML/MIN (>=60); GLUCOSE, SERUM 56 MG/DL (60-99); SODIUM, SERUM 143 MMOL/L (135-148)
[2016-10-10 03:39] LABS: HEMATOCRIT 30.9 % (36.0-48.0); HEMOGLOBIN 11.1 g/dL (12.0-16.0); MEAN CORPUS HGB CONC 35.9 g/dL (32.0-36.0); MEAN CORPUSCULAR HEMOGLOB 36.5 pg (26.0-34.0); MEAN CORPUSCULAR VOLUME 101.6 fL (80-100); PLATELET COUNT 163 10/3/uL (150-400); RBC DISTRIBUTION WIDTH 12.9 % (12.0-16.0); RED CELL COUNT 3.04 10/6/uL (4.0-5.6)
[2016-10-10 03:40] LABS: MANUAL DIFF YES %; WHITE BLOOD CELLS 13.4 10/3/uL (4.5-10.5)
[2016-10-10 03:54] LABS: BUN (BLOOD UREA NITROGEN) 11 MG/DL (6-23); CALCIUM, SERUM 8.2 MG/DL (8.5-10.4); CHLORIDE, SERUM 106 MMOL/L (96-112); CO2 (CARBON DIOXIDE) 21 MMOL/L (24-34); CREATININE 0.54 MG/DL (0.55-1.02); GFR AFRICAN AMERICAN 128 ML/MIN (>=60); GFR NON AFRICAN AMERICAN 110 ML/MIN (>=60); POTASSIUM, SERUM 4.4 MMOL/L (3.5-5.3); SODIUM, SERUM 137 MMOL/L (135-148)
[2016-10-10 03:56] LABS: GLUCOSE, SERUM 84 MG/DL (60-99)
[2016-10-10 04:08] LABS: BAND NEUTROPHILS 14 %; LYMPHOCYTES 8 %; LYMPHOCYTES ABSOLUTE (CALC) 1.07 10/3/uL (0.67-4.30); MACROCYTES 1+ (5-10/OIF) (0-5/OIF); MONOCYTES 4 %; MONOCYTES ABSOLUTE (CALC) 0.54 10/3/uL (0.21-1.20); NEUTROPHILS ABSOLUTE (CALC) 11.79 10/3/uL (2.02-8.40); PLATELET ESTIMATE ADQ (ADEQUATE); SEGMENTED NEUTROPHIL (0) 74 %; TOTAL NUCLEATED CELLS 100
[2016-10-10 18:08] LABS: HEMOGLOBIN 11.8 g/dL (12.0-16.0)
[2016-10-10 18:09] LABS: HEMATOCRIT 34.9 % (36.0-48.0)
[2016-10-11 06:01] LABS: BASOPHILS 0.1 %; BASOPHILS ABSOLUTE 0.01 10/3/uL (0.0-0.16); EOSINOPHILS 0.1 %; EOSINOPHILS ABSOLUTE 0.01 10/3/uL (0.0-0.53); HEMATOCRIT 31.6 % (36.0-48.0); IMMATURE GRANULOCYTES 0.3 %; IMMATURE GRANULOCYTES ABSOLUTE 0.04 10/3/uL (0.0-0.11); LYMPHOCYTES 9.9 %; LYMPHOCYTES ABSOLUTE 1.22 10/3/uL (0.67-4.30); MEAN CORPUS HGB CONC 34.8 g/dL (32.0-36.0); MEAN CORPUSCULAR HEMOGLOB 35.8 pg (26.0-34.0); MEAN CORPUSCULAR VOLUME 102.9 fL (80-100); MEAN PLATELET VOLUME 10.9 fL (9.2-13.0); MONOCYTES 10.4 %; MONOCYTES ABSOLUTE 1.28 10/3/uL (0.21-1.20); NEUTROPHILS 79.2 %; NEUTROPHILS ABSOLUTE 9.72 10/3/uL (2.02-8.40); PLATELET COUNT 187 10/3/uL (150-400); RBC DISTRIBUTION WIDTH 13.4 % (12.0-16.0); RED CELL COUNT 3.07 10/6/uL (4.0-5.6); WHITE BLOOD CELLS 12.3 10/3/uL (4.5-10.5)
[2016-10-11 06:07] LABS: MANUAL DIFF NO %
[2016-10-11 06:09] LABS: BUN (BLOOD UREA NITROGEN) 6 MG/DL (6-23); CALCIUM, SERUM 8.3 MG/DL (8.5-10.4); CHLORIDE, SERUM 97 MMOL/L (96-112); CO2 (CARBON DIOXIDE) 27 MMOL/L (24-34); CREATININE 0.63 MG/DL (0.55-1.02); GFR AFRICAN AMERICAN 121 ML/MIN (>=60); GFR NON AFRICAN AMERICAN 105 ML/MIN (>=60); GLUCOSE, SERUM 128 MG/DL (60-99); POTASSIUM, SERUM 4.9 MMOL/L (3.5-5.3); SODIUM, SERUM 131 MMOL/L (135-148)
[2016-10-12 05:04] LABS: BASOPHILS 0.1 %; BASOPHILS ABSOLUTE 0.01 10/3/uL (0.0-0.16); EOSINOPHILS 0.4 %; EOSINOPHILS ABSOLUTE 0.03 10/3/uL (0.0-0.53); HEMATOCRIT 31.5 % (36.0-48.0); HEMOGLOBIN 11.2 g/dL (12.0-16.0); IMMATURE GRANULOCYTES 0.2 %; IMMATURE GRANULOCYTES ABSOLUTE 0.02 10/3/uL (0.0-0.11); LYMPHOCYTES 18.9 %; LYMPHOCYTES ABSOLUTE 1.54 10/3/uL (0.67-4.30); MEAN CORPUS HGB CONC 35.6 g/dL (32.0-36.0); MEAN CORPUSCULAR HEMOGLOB 35.9 pg (26.0-34.0); MEAN PLATELET VOLUME 10.4 fL (9.2-13.0); NEUTROPHILS 64.4 %; NEUTROPHILS ABSOLUTE 5.24 10/3/uL (2.02-8.40); PLATELET COUNT 200 10/3/uL (150-400); RED CELL COUNT 3.12 10/6/uL (4.0-5.6); WHITE BLOOD CELLS 8.1 10/3/uL (4.5-10.5)
[2016-10-12 05:11] LABS: MANUAL DIFF NO %
[2016-10-12 05:27] LABS: BUN (BLOOD UREA NITROGEN) 7 MG/DL (6-23); CALCIUM, SERUM 8.6 MG/DL (8.5-10.4); CHLORIDE, SERUM 95 MMOL/L (96-112); CO2 (CARBON DIOXIDE) 29 MMOL/L (24-34); CREATININE 0.52 MG/DL (0.55-1.02); GFR AFRICAN AMERICAN 129 ML/MIN (>=60); GFR NON AFRICAN AMERICAN 111 ML/MIN (>=60); GLUCOSE, SERUM 99 MG/DL (60-99); POTASSIUM, SERUM 3.6 MMOL/L (3.5-5.3); SODIUM, SERUM 132 MMOL/L (135-148)
[2016-10-13 06:52] LABS: BUN (BLOOD UREA NITROGEN) 8 MG/DL (6-23); CALCIUM, SERUM 8.6 MG/DL (8.5-10.4); CHLORIDE, SERUM 94 MMOL/L (96-112); CREATININE 0.73 MG/DL (0.55-1.02); GFR AFRICAN AMERICAN 111 ML/MIN (>=60); GFR NON AFRICAN AMERICAN 96 ML/MIN (>=60); POTASSIUM, SERUM 4.2 MMOL/L (3.5-5.3); SODIUM, SERUM 130 MMOL/L (135-148)
[2016-10-13 06:56] LABS: CO2 (CARBON DIOXIDE) 24 MMOL/L (24-34); GLUCOSE, SERUM 146 MG/DL (60-99)
[2016-10-13] MEDS ORDERED: HALF81 PO (09:37)
[2016-10-13] MEDS ORDERED: LIPITOR40 PO (09:38)
[2016-10-13] MEDS ORDERED: PLAVIX PO (09:38)
[2016-10-13] MEDS ORDERED: PERCOCET 10/3251 TAB PO (09:39)
[2016-10-13] MEDS ORDERED: TOPXL25 PO (09:41)
[2016-10-13] MEDS ORDERED: KLOR-CON 1010 MEQ PO (09:42)
[2016-10-13] MEDS ORDERED: BENICAR HCT1 TAB PO (09:58)
[2016-11-02] MEDS ORDERED: K500 PO (13:39)
[2016-11-17] MEDS ORDERED: HYDROCHLOROT12.5 MG PO (18:19)
[2016-11-17] MEDS ORDERED: X5 PO (18:20)
== END 2016-10-13 11:59 | disposition home or self-care (01) | DRG 234 ==
LOC: ER 20:34 → 5NO 21:12 → SDC/OF 10-09 07:36 → CVICU 10-09 13:26 → 5NO 10-10 11:09
PROVIDERS: Emergency Medicine; Internal Medicine; Internal Medicine Cardiovascular Disease; Nurse Practitioner Family; Thoracic Surgery (Cardiothoracic Vascular Surgery)
PROC: 06BQ4ZZ Excision of Left Saphenous Vein, Percutaneous Endoscopic Approach (ICD-10-PCS; 2016-10-05)
PROC: 021009W Bypass Coronary Artery, One Artery from Aorta with Autologous Venous Tissue, Open Approach (ICD-10-PCS; 2016-10-05)
PROC: 4A023N7 Measurement of Cardiac Sampling and Pressure, Left Heart, Percutaneous Approach (ICD-10-PCS; principal; 2016-10-06)
PROC: B2111ZZ Fluoroscopy of Multiple Coronary Arteries using Low Osmolar Contrast (ICD-10-PCS; 2016-10-06)
PROC: 02100Z8 Bypass Coronary Artery, One Artery from Right Internal Mammary, Open Approach (ICD-10-PCS; 2016-10-06)
PROC: B2151ZZ Fluoroscopy of Left Heart using Low Osmolar Contrast (ICD-10-PCS; 2016-10-06)
PROC: 5A1221Z Performance of Cardiac Output, Continuous (ICD-10-PCS; 2016-10-09)
PROC: B246ZZ4 Ultrasonography of Right and Left Heart, Transesophageal (ICD-10-PCS; 2016-10-09)
PROC: 0210099 Bypass Coronary Artery, One Artery from Left Internal Mammary with Autologous Venous Tissue, Open Approach (ICD-10-PCS; 2016-10-09 09:00)
DX: I21.4 Non-ST elevation (NSTEMI) myocardial infarction (principal); I10 Essential (primary) hypertension; I25.10 Atherosclerotic heart disease of native coronary artery without angina pectoris; Z87.891 Personal history of nicotine dependence; Z79.899 Other long term (current) drug therapy; E66.9 Obesity, unspecified
CPT/HCPCS: 36415; 71010; 71020; 80048; 80053; 80061; 81001; 82330; 82803; 82805; 82947; 82962; 83036; 83735; 84132; 84295; 84460; 84484; 84703; 85014; 85018; 85025; 85049; 85347; 85610; 85730; 86850; 86900; 86901; 87070; 87641; 93005; 93306; 93312; 93320; 93325; 93458; 93880; 94002; 94640; 94660; 94770; 96374; 99291; A9270-GY; C1713; C1769; C1894; J0690; J1644; J2150; J2250; J2370; J2405; J2440; J2550; J2720; J2765; J2795; J2930; J3010; J3475; J3480; P9045; P9047; Q9967

== ENCOUNTER 2016-11-03 06:22 | Day surgery (SDC) | payer OTHER ==
[2016-11-02 14:22] LABS: BASOPHILS 0.5 %; BASOPHILS ABSOLUTE 0.03 10/3/uL (0.0-0.16); EOSINOPHILS 3.6 %; EOSINOPHILS ABSOLUTE 0.24 10/3/uL (0.0-0.53); HEMOGLOBIN 12.2 g/dL (12.0-16.0); IMMATURE GRANULOCYTES 0.2 %; IMMATURE GRANULOCYTES ABSOLUTE 0.01 10/3/uL (0.0-0.11); LYMPHOCYTES 28.1 %; LYMPHOCYTES ABSOLUTE 1.87 10/3/uL (0.67-4.30); MEAN CORPUS HGB CONC 34.5 g/dL (32.0-36.0); MEAN CORPUSCULAR HEMOGLOB 35.1 pg (26.0-34.0); MEAN CORPUSCULAR VOLUME 101.7 fL (80-100); MEAN PLATELET VOLUME 9.6 fL (9.2-13.0); MONOCYTES 8.9 %; MONOCYTES ABSOLUTE 0.59 10/3/uL (0.21-1.20); NEUTROPHILS 58.7 %; NEUTROPHILS ABSOLUTE 3.92 10/3/uL (2.02-8.40); RBC DISTRIBUTION WIDTH 13.4 % (12.0-16.0); RED CELL COUNT 3.48 10/6/uL (4.0-5.6); WHITE BLOOD CELLS 6.7 10/3/uL (4.5-10.5)
[2016-11-02 14:24] LABS: HEMATOCRIT 35.4 % (36.0-48.0); MANUAL DIFF NO %; PLATELET COUNT 486 10/3/uL (150-400)
[2016-11-02 14:29] LABS: INTERNATIONAL NORMAL RATI 1.1 UNITS (-); PROTIME (NOT ORD) 14.3 SEC (12.0-14.5)
[2016-11-02 14:37] LABS: BUN (BLOOD UREA NITROGEN) 5 MG/DL (6-23); CALCIUM, SERUM 9.4 MG/DL (8.5-10.4); CHLORIDE, SERUM 100 MMOL/L (96-112); CO2 (CARBON DIOXIDE) 28 MMOL/L (24-34); GFR AFRICAN AMERICAN 117 ML/MIN (>=60); GFR NON AFRICAN AMERICAN 101 ML/MIN (>=60); POTASSIUM, SERUM 4.2 MMOL/L (3.5-5.3)
[2016-11-02 14:38] LABS: GLUCOSE, SERUM 103 MG/DL (60-99); SODIUM, SERUM 137 MMOL/L (135-148)
[2016-11-02 14:46] LABS: ASCORBIC ACID (UR NOT ORDER) 40 (NEG); BILIRUBIN, URINE NEGATIVE (NEG); KETONE, URINE NEGATIVE (NEG); LEUKOCYTE ESTERASE(NOT OR NEG (NEG); WBC (NOT ORDERED) (RFLEX) < 1 (0-5)
--- NOTE | ~2016-11-03 | OP ---
Record Of Operation [facility] [address] [place]. [address] NAME: SANDI SPARKS : 67 STATUS : REG [facility] PAT#: [id number] AGE: 51 ADM/REG DATE : 11/03/16 MR#: [id number] REPORT SERV DATE: 11/03/16 DICTATED BY: LINDA CONTI DATE: 11/03/16 REPORT STATUS : Draft TRANSCRIBED BY: MODNeida DATE: 11/03/16 DATE OF PROCEDURE: 11/03/2016 PREOPERATIVE DIAGNOSES: 1. Sternal wound break down, status post coronary artery bypass grafting. 2. Obesity. 3. Previous tobacco abuse. 4. Hypertension. POSTOPERATIVE DIAGNOSES: 1. Sternal wound break down, status post coronary artery bypass grafting. 2. Obesity. 3. Previous tobacco abuse. 4. Hypertension. PROCEDURE PERFORMED: 1. Sternal wound debridement. 2. Removal of two sternal wires. POINT OF CARE TECHNICIAN: Abdirahman Bah. ANESTHESIA: General. INDICATIONS: This is a 51-year-old female who underwent emergent coronary artery bypass grafting on 10/09/2016. She had a non-ST elevation myocardial infarction. She had a long history of smoking. Postoperatively, she did well and was discharged to home. Several days ago, she noted some drainage from the inferior aspect of her wound and she came to our office yesterday and indeed there was a small punctate opening in the distal aspect of the sternal incision, which tunneled cephalad for several centimeters. I felt the patient should undergo operative debridement and placement of Vac-Pac and this was discussed with the patient and her , and they wished to proceed. FINDINGS AT OPERATION: 1. The wound went cephalad for several centimeters. The length of the wound overall at the conclusion of the operation was 9.5 cm long, 1.5 cm wide, and 2 cm deep. It did go down to the sternum proper and two sternal wires were removed that were exposed. 2. Cultures were done in our office yesterday. 3. Vac-Pac was placed. PATHOLOGIC SPECIMENS: None. DESCRIPTION OF PROCEDURE: The patient was brought to the operating suite where general anesthesia was induced and airway secured with an endotracheal tube. Lines secured by Anesthesia. The patient's chest and abdomen were prepped with Hibiclens and ChloraPrep and draped with Ioban and sterile sheets. We used local anesthetic around the wound. After this, it was infiltrated. Drape was cut away from the opening and then we tunneled cephalad Record Of Operation [facility] [address] [place]. [address] NAME: SANDI SPARKS : 67 STATUS : REG [facility] PAT#: [id number] AGE: 51 ADM/REG DATE : 11/03/16 MR#: [id number] REPORT SERV DATE: 11/03/16 DICTATED BY: LINDA CONTI DATE: 11/03/16 REPORT STATUS : Draft TRANSCRIBED BY: ZULEMA DATE: 11/03/16 in the midline. This portion of the incision was opened for the length of 9.5 cm. The subcutaneous tissue had some necrosis with no edgardo purulence. The wound was cultured yesterday, so we just debrided this area today. It did go down to the two most distal sternal wires and these were removed. The bone tissue appeared to be viable as was surrounding subcutaneous tissue that was debrided. Next, this area was pulse lavaged using 3 L of saline. Hemostasis was obtained and a Vac- Pac placed. The patient tolerated the procedure well. There were no complications. Sponge and needle counts were correct. DISPOSITION: She was awakened and extubated and taken to the recovery room in stable condition. AMELIA/ZULEMA Linda Conti M.D. / [id number] CC: Linda Conti M.D. NO PCP
[~2016-11-03 06:22] MED LIST: BENICAR HCT1 TAB PO; CENTRUM PO; HALF81 PO; K500 PO; KLOR-CON 1010 MEQ PO; LIPITOR40 PO; PERCOCET 10/3251 TAB PO; PLAVIX PO; TOPXL25 PO; TRAN200 PO
[2016-11-17] MEDS ORDERED: HYDROCHLOROT12.5 MG PO (18:19)
[2016-11-17] MEDS ORDERED: X5 PO (18:20)
== END 2016-11-03 15:39 | disposition home or self-care (01) ==
LOC: SDC 06:22
PROVIDERS: Thoracic Surgery (Cardiothoracic Vascular Surgery)
PROC: 0JB60ZZ Excision of Chest Subcutaneous Tissue and Fascia, Open Approach (ICD-10-PCS; principal; 2016-11-03 07:45)
PROC: 0PC00ZZ Extirpation of Matter from Sternum, Open Approach (ICD-10-PCS; 2016-11-03 07:45)
DX: T81.4XXA Infection following a procedure, initial encounter (principal); L02.213 Cutaneous abscess of chest wall; Z95.1 Presence of aortocoronary bypass graft; I25.2 Old myocardial infarction; I10 Essential (primary) hypertension; I25.10 Atherosclerotic heart disease of native coronary artery without angina pectoris; E78.00 Pure hypercholesterolemia, unspecified; E66.9 Obesity, unspecified; Z87.891 Personal history of nicotine dependence; Z79.82 Long term (current) use of aspirin; Z79.2 Long term (current) use of antibiotics; Z79.02 Long term (current) use of antithrombotics/antiplatelets; Z79.899 Other long term (current) drug therapy; Z90.89 Acquired absence of other organs; Z98.890 Other specified postprocedural states; Z98.51 Tubal ligation status
CPT/HCPCS: 36415; 80048; 81001; 83036; 85025; 85610; 86850; 86900; 86901; 86920; A9270-GY; J0690; J1170; J2250; J2370; J2710; J2795; J3010

== ENCOUNTER 2016-11-21 07:52 | Day surgery (SDC) | payer OTHER ==
[2016-11-17 17:08] LABS: BASOPHILS 0.2 %; BASOPHILS ABSOLUTE 0.02 10/3/uL (0.0-0.16); EOSINOPHILS ABSOLUTE 0.48 10/3/uL (0.0-0.53); HEMATOCRIT 36.7 % (36.0-48.0); HEMOGLOBIN 12.6 g/dL (12.0-16.0); IMMATURE GRANULOCYTES 0.1 %; IMMATURE GRANULOCYTES ABSOLUTE 0.01 10/3/uL (0.0-0.11); LYMPHOCYTES 28.1 %; LYMPHOCYTES ABSOLUTE 2.25 10/3/uL (0.67-4.30); MANUAL DIFF NO %; MEAN CORPUS HGB CONC 34.3 g/dL (32.0-36.0); MEAN CORPUSCULAR HEMOGLOB 35.5 pg (26.0-34.0); MEAN CORPUSCULAR VOLUME 103.4 fL (80-100); MEAN PLATELET VOLUME 10.2 fL (9.2-13.0); MONOCYTES 7.9 %; MONOCYTES ABSOLUTE 0.63 10/3/uL (0.21-1.20); NEUTROPHILS 57.7 %; NEUTROPHILS ABSOLUTE 4.63 10/3/uL (2.02-8.40); PLATELET COUNT 316 10/3/uL (150-400); RBC DISTRIBUTION WIDTH 13.9 % (12.0-16.0); RED CELL COUNT 3.55 10/6/uL (4.0-5.6)
[2016-11-17 17:14] LABS: PROTIME (NOT ORD) 13.3 SEC (12.0-14.5)
[2016-11-17 17:21] LABS: BUN (BLOOD UREA NITROGEN) 9 MG/DL (6-23); CALCIUM, SERUM 9.2 MG/DL (8.5-10.4); CHLORIDE, SERUM 104 MMOL/L (96-112); CO2 (CARBON DIOXIDE) 27 MMOL/L (24-34); CREATININE 0.81 MG/DL (0.55-1.02); GFR AFRICAN AMERICAN 98 ML/MIN (>=60); GFR NON AFRICAN AMERICAN 85 ML/MIN (>=60); GLUCOSE, SERUM 100 MG/DL (60-99); POTASSIUM, SERUM 4.2 MMOL/L (3.5-5.3); SODIUM, SERUM 140 MMOL/L (135-148)
[2016-11-17 18:07] LABS: ASCORBIC ACID (UR NOT ORDER) NEG (NEG); BILIRUBIN, URINE NEGATIVE (NEG); KETONE, URINE NEGATIVE (NEG); LEUKOCYTE ESTERASE(NOT OR NEG (NEG); WBC (NOT ORDERED) (RFLEX) < 1 (0-5)
--- NOTE | ~2016-11-21 | OP ---
Record Of Operation [facility] [address] [place]. [address] NAME: SANDI SPARKS : 67 STATUS : ADM IN PAT#: [id number] AGE: 51 ADM/REG DATE : 11/21/16 MR#: [id number] REPORT SERV DATE: 11/21/16 DICTATED BY: LINDA CONTI DATE: 11/21/16 REPORT STATUS : Draft TRANSCRIBED BY: MODL DATE: 11/21/16 DATE OF PROCEDURE: 11/21/2016 PREOPERATIVE DIAGNOSIS: Sternal wound dehiscence status post previous coronary artery bypass grafting. POSTOPERATIVE DIAGNOSIS: Sternal wound dehiscence status post previous coronary artery bypass grafting. PROCEDURE PERFORMED: Sternal wound closure, superficial. SURGEON: Linda Conti M.D. HOGSHEAD HEAD MATCHER: Sampson Penny. ANESTHESIA: General. INDICATIONS: This is a 51-year-old female, who underwent an emergency bypass surgery on 10/09/3016. She did well postoperatively and started having some drainage from the inferior aspect of the wound, and was taken back to the operating room on 11/03/2016, where she was debrided and we removed two sternal wires. She had a Vac-Pac placed at that time. We have been seeing her since 11/03/2016, and the wound is granulating nicely, and I felt it was reasonable to close at this time. I discussed this with the patient her , and they wished to proceed. FINDINGS: 1. There was no evidence of pus. There was healthy granulation tissue on both size and healthy muscle bilaterally that was mobilized to the midline. 2. A 19 mm Leroy drain was placed underneath the small muscle advancement flaps placed over the wound. PATHOLOGIC SPECIMEN: None. DESCRIPTION OF PROCEDURE: The patient was brought to the operating suite. General anesthesia was induced. Airway was secured with an LMA. Lines were secured by Anesthesia. The patient's Vac-Pac was removed, and the wound was prepped with Hibiclens and ChloraPrep, and draped with Ioban sterile sheets. The wound was inspected, it was granulating nicely and bled quite easily. We then debrided the wound VAC for several centimeters underneath the pectoralis muscle to mobilize this over the midline. Once this was accomplished, hemostasis was obtained. Approximately 2.5 L of normal saline was then used to lavage the area using pulse lavage. Hemostasis was again assured and a Leroy drain was placed through a separate stab incision and brought out and secured to the skin. This was a 19 mm Leroy. Then, the pectoralis muscles were reapproximated on the linea alba over the midline. The subcutaneous tissue was Record Of Operation [facility] [address] [place]. [address] NAME: SANDI SPARKS : 67 STATUS : ADM IN [facility]#: [id number] AGE: 51 ADM/REG DATE : 11/21/16 MR#: [id number] REPORT SERV DATE: 11/21/16 DICTATED BY: LINDA CONTI DATE: 11/21/16 REPORT STATUS : Draft TRANSCRIBED BY: ZULEMA DATE: 11/21/16 closed and the skin was closed in subcuticular fashion. The patient tolerated the procedure well. There were no complications. Sponge and needle counts were correct. DISPOSITION: She was awakened and extubated, and a Prevena dressing was placed over the incision. AMELIA/ZULEMA Linda Conti M.D. / [id number] CC: Linda Conti M.D.
[~2016-11-21 07:52] MED LIST changes: +HYDROCHLOROT12.5 MG PO; +X5 PO
== END 2016-11-21 15:15 | disposition home or self-care (01) ==
LOC: SDC 07:52
PROVIDERS: Thoracic Surgery (Cardiothoracic Vascular Surgery)
PROC: 0HQ5XZZ Repair Chest Skin, External Approach (ICD-10-PCS; principal; 2016-11-21 08:45)
DX: Z48.1 Encounter for planned postprocedural wound closure (principal); Z95.1 Presence of aortocoronary bypass graft; Z98.890 Other specified postprocedural states; I10 Essential (primary) hypertension; I25.10 Atherosclerotic heart disease of native coronary artery without angina pectoris
CPT/HCPCS: 36415; 80048; 81001; 85025; 85610; 86850; 86900; 86901; 86920; 93005; A9270-GY; J0690; J1170; J2250; J2405; J2795; J3010